=== PATIENT | female | born 1940 | race Caucasian/White ===

== ENCOUNTER 2018-07-15 06:13 | Day surgery (SDC) | payer MEDICARE ==
[~2018-07-15 06:13] MED LIST: Buffered Lidocaine 0.9% SYRIN* 5 ML/SYR SYRINGE INTRADERM ONE
[2018-07-15] MEDS ORDERED: ceFAZolin 2 GM PREMIX (*) 2 GM/50 ML BAG IVPB ONE (06:49)
[2018-07-15] MEDS ORDERED: Naloxone* 0.4 MG/ML 1 ML VIAL IV PRN (07:25)
[2018-07-15] MEDS ORDERED: Lidocaine 1% MPF wEPI 200,000* 30 ML SDV ONE (07:27)
[2018-07-15] MEDS ORDERED: Methylene Blue 0.5 %* 50 MG/10 ML AMP IV ONE (07:27)
[2018-07-15] MEDS ORDERED: Lidocain 1% EPI 1:100,000 * 30 ML MDV ONE (07:28)
[2018-07-15] MEDS ORDERED: Mineral Oil Sterile, TOPICAL* 25 ML BTL ONE (07:28)
[2018-07-15] MEDS ORDERED: Lidocaine 1% INJ* 10 MG/ML 30 ML SDV ONE (07:28)
[2018-07-15] MEDS ORDERED: Midazolam* 1 MG/ML 2 ML VIAL (2 MG) ONE (07:31)
[2018-07-15] MEDS ORDERED: fentaNYL* 50 MCG/ML 2 ML VIAL (100 MCG VIAL) ONE (07:31)
[2018-07-15] MEDS ORDERED: Bupivacaine 0.25% W/EPI* 10 ML SDV ONE (07:33)
[2018-07-15] MEDS ORDERED: Propofol* 10 MG/ML 20 ML BTL IV PUSH ONE (07:39)
[2018-07-15] MEDS ORDERED: Lidocaine 2% PF * 5 ML VIAL ONE (07:39)
[2018-07-15 09:58] VITALS: BP 131/79
== END 2018-07-15 10:00 | disposition home or self-care (01) ==
LOC: OR 06:13
PROVIDERS: ATTEND Plastic Surgery
DX: C44.729 Squamous cell carcinoma of skin of left lower limb, including hip (principal)
CPT/HCPCS: 88305; 88331; 88332; A9270-GY; J0690; J2001; J2250; J2704; J3010